=== PATIENT | female | born 1995 | race Asian ===

== ENCOUNTER 2019-03-28 12:23 | Emergency (ER) | payer SELFPAY ==
[~2019-03-28] VITALS: Ht 170.2 cm; Wt 59.0 kg
[2019-03-28 12:55] VITALS: BP 112/55
--- NOTE | 2019-03-28 13:28 | NUR ---
PT AMBULATED TO BED 02.
--- NOTE | 2019-03-28 13:33 | NUR ---
PT IS A 24 Y/O FEMALE WHO PRESENTS TO THE ED C/O L FLANK PAIN. PT STATES THAT SYMPTOMS HAS BEEN BOTHERING HER X6 DAYS. PT [facility] AND RECEIVED A RX OF SULFAMETHOX BUT SYMPTOMS ARE NOT IMPROVING. PT REPORTS 6/10 ACHING L FLANK PAIN THAT RADIATES TO THE LOWER BACK. PT DENIES CP, SOB, REPORTS NAUSEA DENIES VOMITING/DIARRHEA. PT AWAKE AND ALERT, RR EVEN/UNLABORED. PT REPOSITIONED FOR COMFORT, BED IN LOWEST POSITION. ER MD DR. ALDANA NOTIFIED. WILL CONTINUE TO MONITOR.
[2019-03-28] MEDS ORDERED: cefTRIAXone 1,000 MG in LIDOCAINE 1% ***ER ONLY *** 2.1 ML IM ONE (14:45)
[2019-03-28] MEDS ORDERED: LEVOFLOXACIN 500 MG TAB PO ONE (14:45)
[2019-03-28] MEDS ORDERED: cefTRIAXone 1,000 MG VIAL ONE (15:11)
[2019-03-28 15:14] LABS: APPEARANCE,URINE CLEAR (CLEAR); BILIRUBIN,URINE NEGATIVE (NEGATIVE); BLOOD, URINE NEGATIVE (NEGATIVE); COLOR,URINE YELLOW (YELLOW); NITRITE, URINE NEGATIVE (NEGATIVE); UGLUCOSE NEGATIVE (NEGATIVE)
[2019-03-28 15:15] LABS: LEUKOCYTE ESTERASE ,URINE TRACE (NEGATIVE)
[2019-03-28 15:17] LABS: RBC,URINE 0-5 /HPF (0-5); WBC,URINE 0-5 /HPF (0-5)
--- NOTE | 2019-03-28 15:30 | NUR ---
PT REFUSING CT BECAUSE OF COST AND RADIATION EXPOSURE & IV INSERTION BECAUSE SHE DOES NOT FEEL SHE NEEDS ONE AT THIS TIME. DR. ALDANA AWARE
[2019-03-28 16:30] VITALS: BP 110/56
--- NOTE | 2019-03-28 16:30 | NUR ---
Patient discharged with v/s stable. Written and verbal after care instructions given and explained. Patient alert, oriented and verbalized understanding of instructions. Ambulatory with steady gait. All questions addressed prior to discharge. ID band removed. Patient advised to follow up with PMD. Rx of LEVAQUIN given. Patient educated on indication of medication including possible reaction and side effects. Opportunity to ask questions provided and answered.
== END 2019-03-28 16:31 | disposition home or self-care (01) ==
LOC: MED 12:23
DX: N39.0 Urinary tract infection, site not specified (principal)
CPT/HCPCS: 81001; 81025; 87086; 96372; 99283; J0696; J2001